=== PATIENT | female | born 1975 | race Two or more races ===

== ENCOUNTER 2024-07-27 11:16 | Emergency (ER) | payer BC, OTHER ==
[~2024-07-27] VITALS: Ht 154.9 cm; Wt 49.0 kg
[2024-07-27] MEDS: HYDROcodone-ACET 5/325MG TAB PO ONE (12:07)
[2024-07-27 13:00] VITALS: BP 169/85; PULSE 120; RESP 16; TEMP 98; O2SAT 100
[2024-07-27] MEDS ORDERED: IBUP-1454 PO (13:21)
== END 2024-07-27 13:29 | disposition home or self-care (01) ==
LOC: ER 11:16
DX: S76.011A Strain of muscle, fascia and tendon of right hip, initial encounter (principal); W18.39XA Other fall on same level, initial encounter; Y93.89 Activity, other specified; Y92.89 Other specified places as the place of occurrence of the external cause; Y99.8 Other external cause status
CPT/HCPCS: 73502

== ENCOUNTER 2025-05-24 03:49 | Inpatient (IN) | payer BC, MEDICAID ==
[2025-05-24] VITALS (16 sets, daily range): BP systolic 101–157; BP diastolic 62–87; PULSE 74–95; RESP 13–20; TEMP 97–98.2; O2SAT 95–100
[~2025-05-24] VITALS: Ht 172.7 cm; Wt 55.9 kg
[~2025-05-24 03:49] MED LIST: IBUP-1454 PO
--- NOTE | 2025-05-24 04:58 | DVH ---
CHEST RADIOGRAPH Indication: fever Technique: 1 view Comparison: None FINDINGS: Lines and Tubes: None Lungs: Decreased lung volumes with vascular crowding. No consolidation. Pleura: No effusion or pneumothorax. Cardiomediastinal contours: Unremarkable. Other: No acute osseous abnormality. Prominent stool burden in the upper abdomen. IMPRESSION: 1. Low lung volumes without acute cardiopulmonary abnormality.
[2025-05-24 05:39] LABS: Hematocrit 28.3 % (36.0-46.0); Hemoglobin 9.0 g/dL (12.2-16.2); Mean Corpuscular Hemoglobin 27.2 pg (28.0-32.0); Mean Corpuscular Volume 85.1 fL (80.0-100.0); Nucleated Red Blood Cells % 0.0 %
[2025-05-24 05:50] LABS: Alanine Aminotransferase 34 U/L (7-40); Albumin 3.7 g/dL (3.2-4.8); Anion Gap 16 (5-15); BUN/Creatinine Ratio 13.7 (10.0-20.0); Bilirubin, Total 0.5 mg/dL (0.2-1.0); Blood Urea Nitrogen 13 mg/dL (9-23); Carbon Dioxide 22 mmol/L (20-31); Potassium 3.8 mmol/L (3.5-5.1); Total Protein 6.6 g/dL (5.7-8.2)
[2025-05-24 05:57] LABS: INR 1.02 (0.9-1.15); Partial Thromboplastin Time 27.0 SEC (24.5-34.5); Prothrombin Time 10.8 sec (9.3-11.8)
[2025-05-24 06:02] LABS: Alkaline Phosphatase 132 U/L (46-116); Calcium 8.2 mg/dL (8.7-10.4); Chloride 92 mmol/L (98-107); Sodium 130 mmol/L (136-145)
[2025-05-24 06:03] LABS: Glucose 505 mg/dL (74-106)
--- NOTE | 2025-05-24 06:56 | ED.PDOC ---
Musculoskeletal HPI Comments 50-year-old female presents here with generalized weakness times 3 months and right lower extremity weakness x3 months . family stat family states that this morning when she went to the restroom she was unable to get up off the toilet. This is new. She states she feels very weak. Denies any fever chills nausea vomiting diarrhea. No abdominal pain no chest pain no shortness of breath. She does have a history of diabetes but has not taken her medications for several months due to insurance reason she has been unable to get her medications. She has been eating and drinking. She also states her left upper extremity has also been swollen for several months. Cause is unknown. Chief Complaint: Lower Extremity Time Seen by MD: 06:20 Reviewed Notes: Medications, Allergies Allergies: Coded Allergies: NO KNOWN ALLERGIES (Unverified , 07/27/24) Home Meds Active Scripts Ibuprofen (Ibuprofen) 600 Mg Tab, 1 TAB PO TID, #30 TAB Prov:RYDERMELBA 07/27/24 Information Source: Patient, Spouse Mode of Arrival: Wheelchair Past Medical History PAST MEDICAL HISTORY: DM Past Medical History (Other): diabetes Surgical History: Denies all surgeries PHLEBOTOMY LAB ASSISTANT History: No Pertinent PHLEBOTOMY LAB ASSISTANT History Family History Family History: Reviewed,noncontributory to illness Social History Smoker: Non-Smoker Alcohol: Denies ETOH Use Drugs: Denies Drug Use Lives In: Home Constitutional: reports: weakness; denies: chills, diaphoresis, fatigue, fever, malaise, sweats, others EENTM: denies: blurred vision, double vision, ear bleeding, ear discharge, ear drainage, ear pain, ear ringing, eye pain, eye redness, hearing loss, mouth pain, mouth swelling, nasal discharge, nose bleeding, nose congestion, nose pain, photophobia, tearing, throat pain, throat swelling, voice changes, others Respiratory: denies: cough, hemoptysis, orthopnea, SOB at rest, shortness of breath, SOB with excertion, stridor, wheezing, others Cardiovascular: denies: chest pain, dizzy spells, diaphoresis, Dyspnea on exertion, edema, irregular heart beat, left arm pain, lightheadedness, palpitations, PND, syncope, others Gastrointestinal: denies: abdomen distended, abdominal pain, blood streaked bowels, constipated, diarrhea, dysphagia, difficulty swallowing, hematemesis, melena, nausea, poor appetite, poor fluid intake, rectal bleeding, rectal pain, vomiting, others Genitourinary: denies: abnormal vagina bleeding, burning, dyspareunia, dysuria, flank pain, frequency, hematuria, incontinence, pain, , vagina discharge, urgency, others Neurological: denies: dizziness, fainting, headache, left sided numbness, left sided weakness, numbness, paresthesia, pre-existing deficit, right sided numbness, right sided weakness, seizure, speech problems, tingling, tremors, weakness, others Musculoskeletal: reports: others (RLE WEAKNESS); denies: back pain, gout, joint pain, joint swelling, muscle pain, muscle stiffness, neck pain Integumetry: denies: bruises, change in color, change in hair/nails, dryness, laceration, lesions, lumps, rash, wounds, others Allergic/Immunocompromised: denies: Difficulty Healing, Frequent Infections, Hives, Itching, others Hematologic/Lymphatic: denies: anemia, blood clots, easy bleeding, easy bruising, swollen glands, others Endocrine: denies: excessive hunger, excessive sweating, excessive thirst, excessive urination, flushing, intolerance to cold, intolerance to heat, unexplained weight gain, unexplained weight loss, others Psychiatric: denies: anxiety, bipolar disorder, depression, hopeless, panic disorder, schizophrenia, sleepless, suicidal, others All Other Systems: Reviewed and Negative Physical Exam Exam Comments Patient unable to stand up and ambulate. Sitting in a wheelchair with family. General Appearance: No Apparent Distress, Normal HEENT: Normal ENT Inspection, Pharynx Normal, TMs Normal Neck: Full Range of Motion, Non-Tender, Normal, Normal Inspection Respiratory: Chest Non-Tender, Lungs Clear, No Accessory Muscle Use, No Respiratory Distress, Normal Breath Sounds Cardiovascular: Normal Peripheral Pulses, Regular Rate/Rhythm Breast Exam: Deferred Gastrointestinal: No Organomegaly, Non Tender, No Pulsatile Mass, Normal Bowel Sounds, Soft Genitalia: Deferred Pelvic: Deferred Rectal: Deferred Extremities: No calf tenderness, Normal capillary refill, Normal range of motion, Non-tender, Other (Plus one and swelling to bilateral lower extremities, worse to the right. She has chronic dry skin to bilateral lower extremities. Left hand does appear swollen.) Musculoskeletal : Apperance: Normal Neurologic: Alert, No Motor Deficits, Normal Affect, Normal Mood, No Sensory Deficits Cerebellar Function: Normal Reflexes: Normal Skin: Dry, Normal Color, Warm Lymphatic: No Adenopathy Was a procedure done? Was a procedure done?: No Differential Diagnosis EXT Differential Diagnosis: Cellulitis, CHF, Deep Vein Thrombosis, Compartment Syndrome, Fracture Other Differential Diagnosis dehydration X-Ray, Labs, Meds, VS Vital Signs Date Time Temp Pulse Resp B/P (MAP) Pulse Ox O2 Delivery O2 Flow Rate FiO2 05/24/25 05:49 100.3 112 15 134/73 (93) 97 100.3 05/24/25 03:51 102.2 128 18 180/96 97 102.2 Lab Test 05/24/25 08:20 05/24/25 05:58 05/24/25 05:15 Range/Units Lactic Acid Level 1.0 1.0 0.4-2.0 mmol/L Beta-Hydroxybutyric Acid 4.061 H < 0.4 mmol/L Influenza Type A Antigen Negative Negative Influenza Type B Antigen Negative Negative SARS-CoV-2 Antigen (Rapid) Negative NEGATIVE White Blood Count 3.6 L 4.4-10.8 10^3/uL Red Blood Count 3.32 L 4.0-5.20 10^6/uL Hemoglobin 9.0 L 12.2-16.2 g/dL Hematocrit 28.3 L 36.0-46.0 % Mean Corpuscular Volume 85.1 80.0-100.0 fL Mean Corpuscular Hemoglobin 27.2 L 28.0-32.0 pg Mean Corpuscular Hemoglobin Concent 32.0 32.0-36.0 g/dL Red Cell Distribution Width 16.8 H 11.8-14.3 % Platelet Count 321 140-450 10^3/uL Mean Platelet Volume 8.4 6.9-10.8 fL Neutrophils (%) (Auto) 75.4 37.0-80.0 % Lymphocytes (%) (Auto) 16.8 10.0-50.0 % Monocytes (%) (Auto) 7.1 0.0-12.0 % Eosinophils (%) (Auto) 0.0 0.0-7.0 % Basophils (%) (Auto) 0.7 0.0-2.0 % Neutrophils # (Auto) 2.7 1.6-8.6 10 ^3/uL Lymphocytes # (Auto) 0.6 0.4-5.4 10 ^3/uL Monocytes # (Auto) 0.3 0-1.3 10 ^3/uL Eosinophils # (Auto) 0 0-0.8 10 ^3/uL Basophils # (Auto) 0 0-0.2 10 ^3/uL Nucleated Red Blood Cells 0.0 % Prothrombin Time 10.8 9.3-11.8 sec Prothrombin Time INR 1.02 0.9-1.15 Activated Partial Thromboplast Time 27.0 24.5-34.5 SEC D-Dimer, Quantitative 1.43 H 0.0-0.49 mg/L FEU Urine Color Pending Urine Clarity Pending Urine pH Pending Urine Specific [place] Pending Urine Protein Pending Urine Ketones Pending Urine Blood Pending Urine Nitrite Pending Urine Bilirubin Pending Urine Urobilinogen Pending Urine Leukocyte Esterase Pending Urine RBC 0 - 4 /hpf Urine Microscopic WBC Pending Urine Squamous Epithelial Cells <5 /hpf Urine Bacteria None Seen /hpf Urine Glucose Pending Sodium Level 130 L 136-145 mmol/L Potassium Level 3.8 3.5-5.1 mmol/L Chloride Level 92 L 98-107 mmol/L Carbon Dioxide Level 22 20-31 mmol/L Anion Gap 16 H 5-15 Blood Urea Nitrogen 13 9-23 mg/dL Creatinine 0.95 0.550-1.02 mg/dL Glomerular Filtration Rate Calc 73 >90 mL/min BUN/Creatinine Ratio 13.7 10.0-20.0 Serum Glucose 505 *H 74-106 mg/dL Calcium Level 8.2 L 8.7-10.4 mg/dL Total Bilirubin 0.5 0.2-1.0 mg/dL Aspartate Amino Transferase (AST) 35 13-40 U/L Alanine Aminotransferase (ALT) 34 7-40 U/L Alkaline Phosphatase 132 H 46-116 U/L Total Protein 6.6 5.7-8.2 g/dL Albumin 3.7 3.2-4.8 g/dL [facility] [id number] [place] [id number] Ph: [phone] DIAGNOSTIC IMAGING Diagnostic Imaging Report : [id number] Signed PATIENT: STEPHENIE TELLES ACCT: [id number] UNIT: [id number] : 1975 LOC: ER ROOM / BED: / AGE / SEX: 50 / F ADM STATUS: REG ER SERVICE [id number] ORDERING PHYSICIAN: SALBADOR BROOKS DO PROCEDURE(s): CXRP - CHEST PORTABLE REASON: fever ORDER NUMBER(s): [id number], ACCESSION NUMBER(s): [id number] CHEST RADIOGRAPH Indication: fever Technique: 1 view Comparison: None FINDINGS: Lines and Tubes: None Lungs: Decreased lung volumes with vascular crowding. No consolidation. Pleura: No effusion or pneumothorax. Cardiomediastinal contours: Unremarkable. Other: No acute osseous abnormality. Prominent stool burden in the upper abdomen. IMPRESSION: 1. Low lung volumes without acute cardiopulmonary abnormality. ATED BY: SHAJI GARCÍA MD DICTATED DATE/TIME: 05/24/25454 SIGNED BY: SHAJI GARCÍA MD SIGNED DATE/TIME: 05/24/25454 CC: [place] [id number] Ph: [phone] DIAGNOSTIC IMAGING Diagnostic Imaging Report : [id number] Signed PATIENT: STEPHENIE TELLES ACCT: [id number] UNIT: [id number] : 1975 LOC: ER ROOM / BED: / AGE / SEX: 50 / F ADM STATUS: REG ER SERVICE [id number] ORDERING PHYSICIAN: GERALD HEDRICK MD PROCEDURE(s): LLDVT - LT Lower DVT REASON: ro dvt ORDER NUMBER(s): [id number], ACCESSION NUMBER(s): [id number] Left lower extremity venous duplex Clinical History: ro dvt Comparison: None Technique: Duplex Doppler evaluation of the deep venous system of the left lower extremity from the common femoral vein to the popliteal vein including color Doppler and spectral/pulsed waveform analysis was performed. Findings: The common femoral vein demonstrates appropriate compressibility and waveform variability. There is compressibility/patency of the great saphenous vein at the proximal thigh. The femoral vein demonstrates appropriate compressibility and waveform variability. The deep femoral vein demonstrates appropriate compressibility and waveform variability. The popliteal vein demonstrates appropriate compressibility and waveform variability. There is normal compressibility at the tibioperoneal trunk. Impression: No left femoropopliteal venous thrombosis. ATED BY: SHAJI GARCÍA MD DICTATED DATE/TIME: 05/24/25827 SIGNED BY: SHAJI GARCÍA MD SIGNED DATE/TIME: 05/24/25827 CC: Time of 1ST Reevaluation: 06:50 Reevaluation 1ST: Unchanged Patient Education/Counseling: Diagnosis, Treatment, Prognosis Family Education/Counseling: Diagnosis, Treatment, Prognosis Sepsis Sepsis Reasesment Focused Exam Orders: Laboratory Tests 05/24/25 05:15: Lactic Acid Level 1.0 05/24/25 08:20: Lactic Acid Level 1.0 Departure 1 Departure Time of Disposition: 09:10 Impression: Primary Impression: DKA (diabetic ketoacidosis) Qualified Codes: E11.10 - Type 2 diabetes mellitus with ketoacidosis without coma Disposition: ADMITTED INPATIENT Admit to: [facility] Condition: Serious Critical Care Note Critical Care Time?: Yes (35 min-critical care time only) Critical care comment: Time spent evaluating patient, reviewing lab work. Starting patient on insulin protocol, speaking to patient family regarding diagnosis, speaking to inpatient Physician. Re-evaluating multiple Accu-Cheks Stability Stability form required: No Heart Score Heart Score: Heart Score Response (Comments) Value History N/A 0 EKG N/A 0 Age N/A 0 Risk Factors N/A 0 Troponin N/A 0 Total 0 I personally scribed for GERALD HEDRICK MD ([email or web address]) on 05/24/25 at 06:56. Electronically submitted by Nitza Clark ([facility]). I personally scribed for GERALD HEDRICK MD ([email or web address]) on 05/24/25 at 07:24. Electronically submitted by [facility] [place] [place] I personally scribed for GERALD HEDRICK MD ([email or web address]) on 05/24/25 at 07:31. Electronically submitted by [facility] [place] [place] I personally scribed for GERALD HEDRICK MD ([facility]) on 05/24/25 at 08:04. Electronically submitted by Nitza Clark ([facility]). I personally scribed for GERALD HEDRICK MD ([facility]) on 05/24/25 at 08:14. Electronically submitted by Nitza Clark ([facility]). I personally scribed for GERALD HEDRICK MD ([facility]) on 05/24/25 at 08:42. Electronically submitted by Nitza Clark ([facility]). GERALD HEDRICK MD May 24, 2025 06:56
[2025-05-24 07:41] LABS: COVID19 ANTIGEN SOFIA FIA NEGATIVE (NEGATIVE)
--- NOTE | 2025-05-24 08:30 | DVH ---
Left lower extremity venous duplex Clinical History: ro dvt Comparison: None Technique: Duplex Doppler evaluation of the deep venous system of the left lower extremity from the common femor al vein to the popliteal vein including color Doppler and spectral/pulsed waveform analysis was perfo rmed. Findings: The common femoral vein demonstrates appropriate compressibility and waveform variability. There is compressibility/patency of the great saphenous vein at the proximal thigh. The femoral vein demonstrates appropriate compressibility and waveform variability. The deep femoral vein demonstrates appropriate compressibility and waveform variability. The popliteal vein demonstrates appropriate compressibility and waveform variability. There is normal compressibility at the tibioperoneal trunk. Impression: No left femoropopliteal venous thrombosis.
[2025-05-24] MEDS ORDERED: DEXTROSE (50%) 50ML SYRG IV PRN (10:30)
[2025-05-24] MEDS: ACCU-CHEK COMFORT CURVE STRIP VI SCH (12:12)
[2025-05-24] MEDS ORDERED: MORPHINE SULFATE INJ 2 MG/ml SYRG IV PRN (13:00)
[2025-05-24] MEDS ORDERED: NITROGLYCERIN 0.4 MG SL TAB SL PRN (13:00)
--- NOTE | 2025-05-24 13:27 | DVHHPRES ---
History of Present Illness Resident Creating Document: LES ROSAS RESIDENT History of Present Illness Ms. Mosley, 50-year-old female presents with generalized weakness and right lower extremity weakness for the past three months, with a sudden inability to rise from the toilet this morning, marking a new and concerning development. She reports feeling very weak but denies fever, chills, gastrointestinal symptoms, chest pain, or shortness of breath. She has a history of diabetes but has not taken her medications for several months due to insurance issues. Additionally, she notes unexplained swelling in her left upper extremity for several months. She arrived via wheelchair, and her spouse helped provide information. She has no known allergies and is currently prescribed ibuprofen. But denies any abdominal pain, nausea, vomiting, melena, hematemesis or hematochezia. PMHx: Unknown, new onset/worsening of DM PMHs: NA FH: Noncontributory SH: Comes from home, denies smoking, alcohol, or any other recreational drugs. OBGYN: Unremarkable Review of Systems Constitutional: Yes: Chills, Malaise; No: Fever, Sweats, Weakness, Other Eyes: No: Pain, Vision change, Conjunctivae inflammation, Eyelid inflammation, Other, Redness ENT: No: Ear pain, Ear discharge, Nose pain, Nose discharge, Nose congestion, Mouth pain, Mouth swelling, Throat pain, Throat swelling, Other Respiratory: No: Cough, Dry, Shortness of breath, SOB with excertion, Wheezing, Hemoptysis, Pleuritic Pain, Sputum, Wheezing, Other Cardiovascular: No: Chest Pain, Palpitations, Orthopnea, Paroxysmal Noc. Dyspnea, Edema, Lt Headedness, Other Gastrointestinal: Nausea, Abdominal Pain; No: Vomiting, Diarrhea, Constipation, Melena, Hematochezia, Other Genitourinary: No Dysuria, No Frequency, No Incontinence, No Hematuria, No Retention, No Other Musculoskeletal: No: other, neck pain, shoulder pain, arm pain, back pain, hand pain, leg pain, foot pain Skin: No: Rash, Lesions, Jaundice, Bruising, Other Neurological: Weakness (The hormonal), Confusion; No: Numbness, Incoordination, Change in speech, Seizures, Other Allergies: Coded Allergies: NO KNOWN ALLERGIES (Unverified , 07/27/24) Medications Current Medications Medications Dose Ordered Sig/Tone Route Start Time Stop Time Status Last Admin Dose Admin Cefepime HCl 50 ml @ 12.5 mls/hr Q12HR IV 05/24/25 22:00 Insulin Human (Reg)/Sodium Chloride 100 ml @ 0.5 mls/hr Q24H IV 05/24/25 10:30 Dextrose 50 ml UD PRN IV 05/24/25 10:30 Diagnostic Test (Pha) 1 strip Q90MIN 05/24/25 10:30 05/24/25 12:12 1 STRIP Ondansetron HCl 4 mg Q4HP PRN IV 05/24/25 13:00 Morphine Sulfate 2 mg Q4HPRN PRN IV 05/24/25 13:00 Nitroglycerin 0.4 mg Q5MINP PRN SL 05/24/25 13:00 Morphine Sulfate 2 mg Q30M PRN IV 05/24/25 13:00 Pantoprazole Sodium 40 mg DAILY IV 05/24/25 13:00 Magnesium Sulfate/ Dextrose 100 ml @ 100 mls/hr Q1HR IV 05/24/25 14:00 05/24/25 15:59 Vancomycin HCl 0 ml @ 0 mls/hr UD IV 05/24/25 13:30 UNV Pantoprazole Sodium 40 mg DAILY IV 05/25/25 10:00 UNV Exam Vital Signs Vital Signs Date Time Temp Pulse Resp B/P (MAP) Pulse Ox O2 Delivery O2 Flow Rate FiO2 05/24/25 11:18 97.5 90 16 115/64 (81) 100 97.5 General Appearance: Alert, Oriented X3, Cooperative, mild distress HEENT: Atraumatic, PERRLA, EOMI, Mucous membr. moist/pink Respiratory: Clear to auscultation, Normal air movement Cardiovascular: Regular rate, Normal S1, Normal S2, No murmurs, Gallops Abdominal: Normal bowel sounds, Soft, Other (tenderness mild without guard ) Extremities: No clubbing, No cyanosis, No edema, Normal pulses Skin: No rashes, No breakdown, No significant lesion Neuro: Normal gait, Normal speech, Strength at 5/5 X4 ext Psych/Mental Status: Mental status NL, Mood NL Labs/Xrays Labs Test 05/24/25 12:11 05/24/25 08:20 05/24/25 05:58 05/24/25 05:15 Range/Units POC Glucose 431 *H 70-106 mg/dl Lactic Acid Level 1.0 0.4-2.0 mmol/L Beta-Hydroxybutyric Acid 4.061 H < 0.4 mmol/L Influenza Type A Antigen Negative Negative Influenza Type B Antigen Negative Negative SARS-CoV-2 Antigen (Rapid) Negative NEGATIVE White Blood Count 3.6 L 4.4-10.8 10^3/uL Red Blood Count 3.32 L 4.0-5.20 10^6/uL Hemoglobin 9.0 L 12.2-16.2 g/dL Hematocrit 28.3 L 36.0-46.0 % Mean Corpuscular Volume 85.1 80.0-100.0 fL Mean Corpuscular Hemoglobin 27.2 L 28.0-32.0 pg Mean Corpuscular Hemoglobin Concent 32.0 32.0-36.0 g/dL Red Cell Distribution Width 16.8 H 11.8-14.3 % Platelet Count 321 140-450 10^3/uL Mean Platelet Volume 8.4 6.9-10.8 fL Neutrophils (%) (Auto) 75.4 37.0-80.0 % Lymphocytes (%) (Auto) 16.8 10.0-50.0 % Monocytes (%) (Auto) 7.1 0.0-12.0 % Eosinophils (%) (Auto) 0.0 0.0-7.0 % Basophils (%) (Auto) 0.7 0.0-2.0 % Neutrophils # (Auto) 2.7 1.6-8.6 10 ^3/uL Lymphocytes # (Auto) 0.6 0.4-5.4 10 ^3/uL Monocytes # (Auto) 0.3 0-1.3 10 ^3/uL Eosinophils # (Auto) 0 0-0.8 10 ^3/uL Basophils # (Auto) 0 0-0.2 10 ^3/uL Nucleated Red Blood Cells 0.0 % Prothrombin Time 10.8 9.3-11.8 sec Prothrombin Time INR 1.02 0.9-1.15 Activated Partial Thromboplast Time 27.0 24.5-34.5 SEC D-Dimer, Quantitative 1.43 H 0.0-0.49 mg/L FEU Urine RBC 0 - 4 /hpf Urine Squamous Epithelial Cells <5 /hpf Urine Bacteria None Seen /hpf Sodium Level 130 L 136-145 mmol/L Potassium Level 3.8 3.5-5.1 mmol/L Chloride Level 92 L 98-107 mmol/L Carbon Dioxide Level 22 20-31 mmol/L Anion Gap 16 H 5-15 Blood Urea Nitrogen 13 9-23 mg/dL Creatinine 0.95 0.550-1.02 mg/dL Glomerular Filtration Rate Calc 73 >90 mL/min BUN/Creatinine Ratio 13.7 10.0-20.0 Serum Glucose 505 *H 74-106 mg/dL Calcium Level 8.2 L 8.7-10.4 mg/dL Magnesium Level 1.5 L 1.6-2.6 mg/dL Total Bilirubin 0.5 0.2-1.0 mg/dL Aspartate Amino Transferase (AST) 35 13-40 U/L Alanine Aminotransferase (ALT) 34 7-40 U/L Alkaline Phosphatase 132 H 46-116 U/L Total Protein 6.6 5.7-8.2 g/dL Albumin 3.7 3.2-4.8 g/dL SEPSIS Sepsis Screen Date sepsis recognized/suspect: May 24, 2025 Time Sepsis recognized/suspect: 356 Recent Procedure: No On Antibiotic Therapy: No Respiratory Rate >20: No Heart Rate >90: Yes Temp<36 C (96.8 F) or >38.3 C: Yes SBP <90 or MAP <65 mmHG: No New Acute Mental Status Change: No Is the patient on CPAP, BIPAP,: No Physician Orders Lt Lower Dvt (05/24/25 07:07) Insulin Drip Protocol (05/24/25 ) Insulin Drip 100 Unit/100ml (Myxredlin 1 (05/24/25 10:30) Dextrose 50% Syringe (05/24/25 10:30) Glucose Blood (Accu-Chek Comfort Curve T (05/24/25 10:30) Neurological Assessment (05/24/25 10:18) Vs/Hemodynamics .PER UNIT PROTOCOL (05/24/25 10:18) Admit (05/24/25 12:53) Allergies (05/24/25 12:53) Code Status (05/24/25 12:53) Oxygen Per Hour (05/24/25 12:53) Ondansetron Hcl (Zofran) (05/24/25 13:00) Fall Risk Precautions In Place QSHIFT (05/24/25 12:53) Complete Blood Count (05/25/25 04:00) Comprehensive Metabolic Panel (05/25/25 04:00) Npo (Nothing By Mouth) Diet (05/24/25 Lunch) Pt Request For Service (05/24/25 12:53) Echo 2d Mode Cardiac Dop (05/24/25 12:53) Condition: Critical (05/24/25 12:53) Maintain Bed Rest (05/24/25 12:53) Morphine Sulfate Injection (05/24/25 13:00) Sequential Compression Device (05/24/25 ) Nitroglycerin Sublingual (Ntrostat Subli (05/24/25 13:00) Morphine Sulfate Injection (05/24/25 13:00) Oxygen By Nasal Cannula (05/24/25 12:53) Stat Ekg For Chest Pain (05/24/25 12:53) Notify Md Of Changes From Base (05/24/25 12:53) Resource Manager For 24 Hours (05/24/25 12:53) Emergency Dysrhythmia Protocol (05/24/25 12:53) Rhythm Strips Once Every Shift (05/24/25 12:53) Drug Screen (05/24/25 12:57) Blood Alcohol (05/24/25 12:57) Pantoprazole (Protonix) (05/24/25 13:00) Mrsa Screen (05/24/25 13:02) Respiratory Culture W/ Gs (05/24/25 13:02) Sodium Chloride 0.9% (05/24/25 13:15) Stool Occult Blood (05/24/25 13:02) Magnesium Sulfate 1gm/100ml (05/24/25 14:00) Vancomycin Per Pharmacy (05/24/25 13:30) Pantoprazole (Protonix) (05/24/25 13:30) Pantoprazole (Protonix) (05/25/25 10:00) Lactated Ringer's (05/24/25 13:30) Vital Signs Date Time Temp Pulse Resp B/P (MAP) Pulse Ox O2 Delivery O2 Flow Rate FiO2 05/24/25 11:18 97.5 90 16 115/64 (81) 100 97.5 05/24/25 05:49 100.3 112 15 134/73 (93) 97 100.3 Laboratory Tests Test 05/24/25 05:15 05/24/25 08:20 Lactic Acid Level 1.0 mmol/L (0.4-2.0) 1.0 mmol/L (0.4-2.0) White Blood Count 3.6 10^3/uL (4.4-10.8) L Medications Medications Dose Ordered Sig/Tone Route Start Time Stop Time Status Last Admin Dose Admin Diagnostic Test (Pha) 1 strip Q90MIN 05/24/25 10:30 05/24/25 12:12 1 STRIP Assessment/Plan Assessment/Plan #Sepsis at presentation, source : Presumably fever, Tylenol as needed, conservative cooling measures. #Metabolic/toxic encephalopathy: Toxicology, alcohol, likely multifactorial, aspiration precaution, NPO, Speak with her interval neuro checks. #DKA: NPO, IV drip insulin protocol, get IV access, in-hospital ideal blood glucose 140-180 mg/dl. #Uncontrolled diabetes mellitus: check HbA1C #Ruled out Covid and Influenza #Hypertensive urgency/ emergency: present on admission, slowly improving, keep MAP > 65 #Uncontrolled essential HTN, target BP 130/90 or below #Early normocytic anemia: likely early iron-deficiency, check the iron panel, ferritin, transfusion threshold 7. IV PPI to continue. stool occult blood to rule out. #Hypomagnesemia, 1.5: IV magnesium #Hyponatremia, mild likely chronic: PCP: Needs to establish care with PCP and Barriers to discharge: Medical management ongoing. Case discussed with Dr. Johansen. Code status: Full code. Complex patient care discussion needed total 39 minutes. Plan discussed with: Patient My Orders Orders - LES ROSAS RESIDENT Procedure Category Date Status Time Admit ADMIT 05/24/25 Transmitted 12:53 Allergies FRANK 05/24/25 In Process 12:53 Code Status CODE 05/24/25 Transmitted 12:53 Oxygen Per Hour RT 05/24/25 Transmitted 12:53 Ondansetron Hcl PHA 05/24/25 In Process (Zofran) 13:00 Fall Risk Precautions FRANK 05/24/[address] 12:53 Complete Blood Count LAB 05/25/25 Verified 04:00 Comprehensive LAB 05/25/25 Verified Metabolic Panel 04:00 Npo (Nothing By DIET 05/24/25 Transmitted Mouth) Diet Lunch Pt Request For Service PT 05/24/25 Logged 12:53 Echo 2d Mode Cardiac US 05/24/25 Logged DOP 12:53 Condition: Critical FRANK 05/24/25 In Process 12:53 Maintain Bed Rest FRANK 05/24/25 In Process 12:53 Morphine Sulfate PHA 05/24/25 In Process Injection 13:00 Sequential FARNK 05/24/25 In Process Compression Device Nitroglycerin PHA 05/24/25 In Process Sublingual (Ntrostat 13:00 Morphine Sulfate PHA 05/24/25 In Process Injection 13:00 Oxygen By Nasal RT 05/24/25 Transmitted Cannula 12:53 Stat Ekg For Chest FRANK 05/24/25 In Process Pain 12:53 Notify Md Of Changes FRANK 05/24/25 In Process From Base 12:53 Resource Manager For FRANK 05/24/25 In Process 24 Hours 12:53 Emergency Dysrhythmia FRANK 05/24/25 In Process Protocol 12:53 Rhythm Strips Once FRANK 05/24/25 In Process Every Shift 12:53 Drug Screen LAB 05/24/25 Logged 12:57 Blood Alcohol LAB 05/24/25 Logged 12:57 Pantoprazole PHA 05/24/25 In Process (Protonix) 13:00 Mrsa Screen ROBBY 05/24/25 Logged 13:02 Respiratory Culture ROBBY 05/24/25 Logged W/ Gs 13:02 Sodium Chloride 0.9% PHA 05/24/25 In Process 13:15 Stool Occult Blood LAB 05/24/25 Logged 13:02 Magnesium Sulfate PHA 05/24/25 In Process 1gm/100ml 14:00 Vancomycin Per PHA 05/24/25 Pending Pharmacy 13:30 Pantoprazole PHA 05/24/25 Logged (Protonix) 13:30 Pantoprazole PHA 05/25/25 Logged (Protonix) 10:00 Lactated Ringer's PHA 05/24/25 Logged 13:30 Date of Service: May 24, 2025 Billing Provider: YESENIA JOHANSEN MD Common Visit Codes: [id number] INP/OBS CARE (HIGH) Secondary Visit Codes: [id number] CARE PLAN 30 MINUTES LES ROSAS RESIDENT May 24, 2025 13:27
[2025-05-24] MEDS ORDERED: VANCOMYCIN PER PHARMACY 0 MG IV SCH (13:30)
[2025-05-24 14:24] LABS: Iron 25.0 ug/dL (50-170); Total Iron Binding Capacity 325.0 ug/dL (250-425)
[2025-05-24] MEDS ORDERED: SODIUM CHLORIDE 0.9% 1,000 ML IV SCH (14:30)
[2025-05-24] MEDS: CEFEPIME 1GM/ 50ML 50 ML IV ONE (14:53)
[2025-05-24] MEDS: SODIUM CHLORIDE 0.9% 500 ML IV ONE (14:53)
[2025-05-24] MEDS: LACTATED RINGER'S 1,450 ML IV ONE (14:53)
[2025-05-24] MEDS: PANTOPRAZOLE 40 MG/10 ML VIAL INJ IV ONE (15:02)
[2025-05-24] MEDS: LACTATED RINGER'S 1,000 ML IV ONE (15:04)
[2025-05-24] MEDS: PANTOPRAZOLE 40 MG/10 ML VIAL INJ IV SCH (15:14)
[2025-05-24] MEDS: VANCOMYCIN 1.25GM/250ML 250 ML IV ONE (15:15)
[2025-05-24] MEDS: INSULIN DRIP 100 UNIT/100ML 100 ML IV SCH ×2 (15:16→20:00)
[2025-05-24] MEDS: SODIUM CHLORIDE 0.9% 1,000 ML IV ONE (15:18)
--- NOTE | 2025-05-24 16:13 | DVHSR ---
APPROVED REPORT EXAM: Two-dimensional and M-mode echocardiogram with Doppler and color Doppler. Blood Pressure: 115/64 mmHg INDICATION rule out structural heart disease RISK FACTORS Height: 5'1, Weight: 110 DIMENSIONS LVDd3.1 (3.8-5.7cm)LA (2D)2.8 (1.9-4.0cm)Aortic Root3.0 (2.0-3.7cm) LVDs1.9 (2.5-4.0cm)LA (MM) (1.9-4.0cm)Aortic Cusp Exc1.5 (1.5-2.0cm) EF (%) 70.0 (55-70%)Rt. Atrium3.6 (1.9-4.0cm)Asc. Aorta3.0 cm IVSd1.3 (0.7-1.1cm)RV (D)3.0 (1.8-2.4cm) PWd1.0 (0.7-1.1cm) Mitral Valve MitralMitral Stenosis E wave0.56m/sMV Mean GR.mmHg A wave0.82m/sMV Peak GR.70mmHg E/A ratio0.72D MVAcm2 DECEL [id number] 1/2 Tim[place] Aortic Valve Aortic ValveAortic Stenosis V10.94m/[place] Mean GR.3mmHg V21.11m/[place] Peak GR.5mmHg LVOT Diameter1.7 (1.8-2.4cm)Doppler AVA1.92cm2 Pulmonic Valve V21.01m/s Tricuspid Valve TR Velocity2.22m/s [id number] Conclusion lvef 60% severe concentric LVH (HCM is on the DDX for this patient though there is no lvot gradient) no severe valve abnormalities noted mild left atrium enlarged
[2025-05-24] MEDS: MAGNESIUM SULFATE 1GM/100ML 100 ML IV SCH (17:04)
[2025-05-24] MEDS: CALCIUM GLUC 1,000mg/50ml-NS 50 ML IV ONE (17:05)
[2025-05-24] MEDS: CEFEPIME 1GM/ 50ML 50 ML IV SCH (22:00)
[2025-05-24 22:27] LABS: Chloride 99 mmol/L (98-107)
[2025-05-24 22:28] LABS: Anion Gap 8 (5-15); Carbon Dioxide 28 mmol/L (20-31)
[2025-05-24 22:34] LABS: BUN/Creatinine Ratio 16.2 (10.0-20.0); Blood Urea Nitrogen 11 mg/dL (9-23)
[2025-05-24 22:36] LABS: Calcium 8.5 mg/dL (8.7-10.4); Glucose 201 mg/dL (74-106); Potassium 2.7 mmol/L (3.5-5.1); Sodium 135 mmol/L (136-145)
[2025-05-25] VITALS (20 sets, daily range): BP systolic 107–179; BP diastolic 61–107; PULSE 74–105; RESP 10–18; TEMP 97.7–98.3; O2SAT 97–100
[2025-05-25] MEDS: INSULIN DRIP 100 UNIT/100ML 100 ML IV SCH (00:15)
[2025-05-25] MEDS: POTASSIUM CHL 20MEQ/100ML 100 ML IV SCH (01:56)
[2025-05-25] MEDS: D5W/SOD CHLO 0.9% 1,000 ML IV SCH (01:56)
[2025-05-25] MEDS: ACCU-CHEK COMFORT CURVE STRIP VI SCH ×2 (02:00→06:27)
[2025-05-25] MEDS ORDERED: DEXTROSE (50%) 50ML SYRG IV PRN (02:30)
[2025-05-25] MEDS: VANCOMYCIN 750MG KIT 100 ML IV SCH (03:18)
[2025-05-25] MEDS ORDERED: InsuLIN REG 1unit/0.01ml Soln (100units/ml) SC SCH (04:00)
[2025-05-25] MEDS ORDERED: ACCU-CHEK COMFORT CURVE STRIP VI SCH (04:00)
[2025-05-25 05:55] LABS: Alanine Aminotransferase 34 U/L (7-40); Albumin 3.4 g/dL (3.2-4.8); Blood Urea Nitrogen 15 mg/dL (9-23); Chloride 100 mmol/L (98-107); Magnesium 2.1 mg/dL (1.6-2.6); Potassium 4.1 mmol/L (3.5-5.1); Sodium 136 mmol/L (136-145); Total Protein 6.1 g/dL (5.7-8.2)
[2025-05-25 05:56] LABS: Bilirubin, Total 0.4 mg/dL (0.2-1.0)
[2025-05-25 05:57] LABS: Anion Gap 12 (5-15)
[2025-05-25 05:58] LABS: Alkaline Phosphatase 130 U/L (46-116); Calcium 8.5 mg/dL (8.7-10.4); Carbon Dioxide 24 mmol/L (20-31)
[2025-05-25 06:02] LABS: BUN/Creatinine Ratio 24.6 (10.0-20.0)
[2025-05-25 06:05] LABS: Glucose 207 mg/dL (74-106)
[2025-05-25] MEDS: InsuLIN REG 1unit/0.01ml Soln (100units/ml) SC SCH (06:26)
[2025-05-25] MEDS ORDERED: PANTOPRAZOLE 40 MG/10 ML VIAL INJ IV SCH (10:00)
[2025-05-25 10:15] LABS: Hematocrit 30.6 % (36.0-46.0); Hemoglobin 9.5 g/dL (12.2-16.2); Mean Corpuscular Hemoglobin 26.5 pg (28.0-32.0); Mean Corpuscular Volume 84.9 fL (80.0-100.0); Nucleated Red Blood Cells % 0.1 %
[2025-05-25 10:35] LABS: Chloride 102 mmol/L (98-107); Potassium 4.5 mmol/L (3.5-5.1)
[2025-05-25 10:36] LABS: Sodium 135 mmol/L (136-145)
[2025-05-25 10:37] LABS: Anion Gap 5 (5-15); Carbon Dioxide 28 mmol/L (20-31)
[2025-05-25 10:42] LABS: BUN/Creatinine Ratio 22.4 (10.0-20.0); Blood Urea Nitrogen 15 mg/dL (9-23)
[2025-05-25 10:44] LABS: Calcium 8.1 mg/dL (8.7-10.4); Glucose 293 mg/dL (74-106)
--- NOTE | 2025-05-25 12:55 | DVHPN2 ---
Subjective Seen and examined at bedside in the [facility] with Dr. Aguilar (Pul) in Czech. Patient lost his insurance therefore stopped taking medications. Counseled in Czech on tight glycemic control. Await urine analysis, if negative can DC Abx. Changes from previous H/P or p: No Changes Eyes: No Pain, No Vision change, No Conjunctivae inflammation, No Eyelid inflammation, No Other, No Redness ENT: No Ear pain, No Ear discharge, No Nose pain, No Nose discharge, No Nose congestion, No Mouth pain, No Mouth swelling, No Throat pain, No Throat swelling, No Other Cardiovascular: No Chest Pain, No Palpitations, No Orthopnea, No Paroxysmal Noc. Dyspnea, No Edema, No Lt Headedness, No Other Respiratory: No Cough, No Dry, No Shortness of breath, No SOB with excertion, No Wheezing, No Hemoptysis, No Pleuritic Pain, No Sputum, No Other Gastrointestinal: No Nausea, No Vomiting, No Abdominal Pain, No Diarrhea, No Constipation, No Melena, No Hematochezia, No Other Genitourinary: No Dysuria, No Frequency, No Incontinence, No Hematuria, No Retention, No Other Musculoskeletal: No other, No neck pain, No shoulder pain, No arm pain, No back pain, No hand pain, No leg pain, No foot pain Skin: No Rash, No Lesions, No Jaundice, No Bruising, No Other Objective Vitals Vital Signs Date Time Temp Pulse Resp B/P (MAP) Pulse Ox O2 Delivery O2 Flow Rate FiO2 05/25/25 12:00 98.3 85 16 132/84 (100) 99 98.3 05/25/25 08:00 Room Air* 0 21 Intake/Output Intake and Output 05/25/25 06:59 Intake Total 2093.0 ml Output Total 1750 ml Balance 343.0 ml Intake Oral 240 ml IV Total 1853.0 ml Output Urine Total 1750 ml # Bowel Movements 1 General Appearance: Alert, Oriented X3, Cooperative, No acute distress HEENT: Atraumatic Lungs: Clear to auscultation Cardiovascular: Regular rate, Normal S1, Normal S2 Abdomen: Normal bowel sounds, Soft Rectal: Deferred Psych/Mental Status: Mental status NL Medications Current Medications Medications Dose Ordered Sig/Tone Route Start Time Stop Time Status Last Admin Dose Admin Cefepime HCl 50 ml @ 12.5 mls/hr Q12HR IV 05/24/25 22:00 05/25/25 09:35 12.5 MLS/HR Ondansetron HCl 4 mg Q4HP PRN IV 05/24/25 13:00 Morphine Sulfate 2 mg Q4HPRN PRN IV 05/24/25 13:00 Nitroglycerin 0.4 mg Q5MINP PRN SL 05/24/25 13:00 Morphine Sulfate 2 mg Q30M PRN IV 05/24/25 13:00 Pantoprazole Sodium 40 mg DAILY IV 05/24/25 13:00 05/25/25 09:35 40 MG Vancomycin HCl 0 ml @ 0 mls/hr UD IV 05/24/25 13:30 Vancomycin HCl 100 ml @ 100 mls/hr Q12H IV 05/25/25 02:00 05/25/25 03:18 100 MLS/HR Dextrose/Sodium Chloride 1,000 ml @ 100 mls/hr Q10H IV 05/25/25 01:15 05/25/25 10:34 100 MLS/HR Dextrose 50 ml UD PRN IV 05/25/25 02:30 Insulin Human Regular Q4HR SC 05/25/25 06:15 05/25/25 09:36 9 UNITS Diagnostic Test (Pha) 1 strip Q4HR 05/25/25 06:15 05/25/25 09:35 1 STRIP Laboratory Results Laboratory Tests 05/25/25 10:00 Chemistry Test 05/24/25 22:06 05/25/25 05:07 05/25/25 10:00 Calcium Level 8.5 mg/dL (8.7-10.4) L 8.5 mg/dL (8.7-10.4) L 8.1 mg/dL (8.7-10.4) L Albumin 3.4 g/dL (3.2-4.8) Magnesium Level 2.1 mg/dL (1.6-2.6) Total Protein 6.1 g/dL (5.7-8.2) LFT Test 05/25/25 05:07 Alanine Aminotransferase (ALT) 34 U/L (7-40) Alkaline Phosphatase 130 U/L (46-116) H Aspartate Amino Transferase (AST) 32 U/L (13-40) Total Bilirubin 0.4 mg/dL (0.2-1.0) Urinalysis Test 05/24/25 05:15 Urine Color Pending Urine Clarity Pending Urine pH Pending Urine Specific Edwards Pending Urine Protein Pending Urine Ketones Pending Urine Blood Pending Urine Nitrite Pending Urine Bilirubin Pending Urine Urobilinogen Pending Urine Leukocyte Esterase Pending Urine RBC /hpf (0 - 4) Urine Microscopic WBC Pending Urine Squamous Epithelial Cells /hpf (<5) Urine Bacteria /hpf (None Seen) Urine Glucose Pending Microbiology Microbiology Date/Time Source Procedure Growth Status 05/24/25 05:15 Blood Blood Culture - Preliminary NO GROWTH AFTER 24 HOURS OF INCUBATION. 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 - Outpatient Cardio workup critical care time 38 mins Plan discussed with: Patient My Orders Orders - YESENIA JOHANSEN MD Procedure Category Date Status Time Transfer Orders XFER 05/24/25 Transmitted 14:54 Provide Diabetic ORDERS 05/25/25 Transmitted Education 12:45 * Master Tax Advisor CONS 05/25/25 Transmitted Consult Sodium Chloride 0.9% PHA 05/25/25 Logged 12:45 Ferrous Sulfate Tablet PHA 05/25/25 Logged 18:00 Vitamin D, 25-Hydroxy LAB 05/25/25 Transmitted 12:45 Thyroid Stimulating LAB 05/25/25 Transmitted Hormone 12:45 Lipid Panel LAB 05/25/25 Transmitted 12:45 Ergocalciferol PHA 05/25/25 Logged (Vitamin D 50,000 12:45 *Consult CONS 05/25/25 Transmitted / 12:45 Date of Service: May 25, 2025 Billing Provider: YESENIA JOHANSEN MD Common Visit Codes: [id number] CARE 30-74 MIN YESENIA JOHANSEN MD May 25, 2025 12:55
[2025-05-25] MEDS: SODIUM CHLORIDE 0.9% 1,000 ML IV SCH (13:05)
[2025-05-25 13:29] LABS: Triglycerides 100 mg/dL (< 150)
[2025-05-25 13:31] LABS: Cholesterol 198 mg/dL (< 200)
[2025-05-25 13:32] LABS: HDL Cholesterol 91 mg/dL (40-59)
[2025-05-25] MEDS: ERGOCALCIFEROL 50,000 UNIT(1.25MG) CAP PO SCH (13:59)
[2025-05-25] MEDS: FERROUS SULFATE 325mg EC TAB PO SCH (17:49)
[2025-05-25 21:11] LABS: Urine Protein, UAD 1+ (Negative)
[2025-05-25 21:15] LABS: Amphetamine Screen, Urine Neg (NEGATIVE); Barbiturate Scree,Urine Neg (NEGATIVE); Benzodiazephine Screen, Urine Neg (NEGATIVE); Cannabinoid Screen, Urine Neg (NEGATIVE); Cocaine Screen, Urine Neg (NEGATIVE); Opiate Scree,Urine Neg (NEGATIVE); Phencyclidine Screen, Urine Neg (NEGATIVE)
[2025-05-25 22:23] LABS: Chloride 100 mmol/L (98-107); Potassium 4.6 mmol/L (3.5-5.1)
[2025-05-25 22:24] LABS: Anion Gap 7 (5-15); Carbon Dioxide 28 mmol/L (20-31)
[2025-05-25 22:27] LABS: Calcium 8.3 mg/dL (8.7-10.4); Sodium 135 mmol/L (136-145)
[2025-05-25 22:29] LABS: BUN/Creatinine Ratio 21.4 (10.0-20.0); Blood Urea Nitrogen 15 mg/dL (9-23)
[2025-05-25 22:34] LABS: Glucose 146 mg/dL (74-106)
--- NOTE | 2025-05-25 23:56 | DVHINCON2 ---
Date of service: May 25, [address] Freedman Reason for Consultation Sepsis History of Present Illness A 50-year-old woman with PMHx of diabetes mellitus presented to ED on 05/24/25 with c/o generalized weakness and right lower extremity weakness for the past 3 months, with a sudden inability to rise from the toilet on the morning of presentation. She reported feeling very weak but denied fever, chills, GI symptoms, chest pain, or shortness of breath. She has a history of diabetes, but has not taken her medications for several months due to insurance issues. Additionally, she notes unexplained swelling in her left upper extremity for several months. She arrived via wheelchair, and her spouse helped provide information. Patient was admitted for further care and pulmonary consultation is requested for evaluation and management d/t sepsis. Review of Systems: 14-point review of systems negative unless otherwise noted above. Past Medical History: Diabetes mellitus Past Surgical History: None Medications: Reviewed. Allergies: No known drug allergies. Family History: No family history of premature CAD. No family history of lung disorders. Social History: Nonsmoker. No alcohol or illicit drug use. Allergies: Coded Allergies: NO KNOWN ALLERGIES (Unverified , 07/27/24) Home Meds Active Scripts Amlodipine Besylate (Amlodipine Besylate) 10 Mg Tab, 1 TAB PO DAILY, #30 TAB 5 Refills Prov:DONNA BROWNING MD 05/28/25 Metformin Hydrochloride (METFORMIN HCL ER) 1,000 Mg Tab, 1 TAB PO DAILY, #90 TAB 1 Refill Prov:DONNA BROWNING MD 05/28/25 Ibuprofen (Ibuprofen) 600 Mg Tab, 1 TAB PO TID, #30 TAB Prov:MELBA SOLER 07/27/24 Current Medications Current Medications Medications (Trade) Dose Ordered Sig/Tone Route PRN Reason Start Time Stop Time Status Last Admin Pantoprazole Sodium (Protonix) 40 mg DAILY IV 05/25/25 10:00 05/24/25 13:38 DC Vancomycin HCl 100 ml @ 100 mls/hr Q12H IV 05/25/25 02:00 05/25/25 14:07 Insulin Human (Reg)/Sodium Chloride 100 ml @ 0.5 mls/hr Q24H IV 05/25/25 00:15 05/25/25 01:17 DC Dextrose/Sodium Chloride 1,000 ml @ 100 mls/hr Q10H IV 05/25/25 01:15 05/25/25 12:48 DC 05/25/25 10:34 Diagnostic Test (Pha) (Accu-Chek Comfort Curve T) 1 strip Q4HR 05/25/25 02:00 05/25/25 06:10 DC 05/25/25 02:00 Potassium Chloride 100 ml @ 50 mls/hr Q2H IV 05/25/25 01:15 05/25/25 07:14 DC 05/25/25 06:27 Diagnostic Test (Pha) (Accu-Chek Comfort Curve T) 1 strip IQ4HR 05/25/25 04:00 05/25/25 06:10 DC Insulin Human Regular (InsuLIN R) IQ4HR SC 05/25/25 04:00 05/25/25 06:10 DC Dextrose 50 ml UD PRN IV Blood Sugar LESS THAN 60 05/25/25 02:30 Insulin Human Regular (InsuLIN R) Q4HR SC 05/25/25 06:15 05/25/25 22:21 Diagnostic Test (Pha) (Accu-Chek Comfort Curve T) 1 strip Q4HR 05/25/25 06:15 05/25/25 22:03 Sodium Chloride 1,000 ml @ 125 mls/hr Q8H IV 05/25/25 12:45 05/25/25 13:05 Ferrous Sulfate 325 mg BIDWM PO 05/25/25 18:00 05/25/25 17:49 Ergocalciferol (Vitamin D 50,000 Unit) 50,000 unit Q7D PO 05/25/25 12:45 05/25/25 13:59 Vital Signs Vital Signs Date Time Temp Pulse Resp B/P (MAP) Pulse Ox O2 Delivery O2 Flow Rate FiO2 05/25/25 22:00 154/98 (116) 05/25/25 21:00 97.9 86 18 97 97.9 05/25/25 08:00 Room Air* 0 21 Physical Exam Gen.: Patient lying in bed in no apparent distress. Breathing on room air. Head: Normocephalic, atraumatic. Eyes: EOMI/PERRLA. Ears: Normal hearing. Normal anatomy. Neck/trachea: Trachea midline, supple. Nose: Normal external anatomy. Mouth: Moist mucous membranes. Chest: Decreased air entry bilaterally. No wheezing or rhonchi. Cardiovascular: Positive S1, positive S2. Regular rate and rhythm. Abdomen: Positive bowel sounds in all 4 quadrants. Soft, non-tender, non- distended. : Deferred. Rectal: Deferred. Skin: Warm, dry. Intact. Extremities: 2+ radial pulses bilaterally. No lower extremity edema. Neuro: Awake, alert, oriented x3. No gross motor or sensory deficits. Cranial nerves II through XII intact. Gait not assessed. Labs/Diagnostic Data Labs Test 05/25/25 22:02 05/25/25 21:57 05/25/25 20:30 05/25/25 10:00 Range/Units POC Glucose 137 H 70-106 mg/dl Sodium Level 135 L 136-145 mmol/L Potassium Level 4.6 3.5-5.1 mmol/L Chloride Level 100 98-107 mmol/L Carbon Dioxide Level 28 20-31 mmol/L Anion Gap 7 5-15 Blood Urea Nitrogen 15 9-23 mg/dL Creatinine 0.70 0.550-1.02 mg/dL Glomerular Filtration Rate Calc 105 >90 mL/min BUN/Creatinine Ratio 21.4 H 10.0-20.0 Serum Glucose 146 H 74-106 mg/dL Calcium Level 8.3 L 8.7-10.4 mg/dL Urine Color Light-yellow Yellow Urine Clarity Turbid H Clear Urine pH 6.0 5.0-9.0 Urine Specific [place] 1.015 1.001-1.035 Urine Protein 1+ H Negative Urine Ketones Negative Negative Urine Blood 2+ H Negative /uL Urine Nitrite Negative Negative Urine Bilirubin Negative Negative Urine Urobilinogen Normal Negative mg/dL Urine Leukocyte Esterase 1+ Negative /uL Urine RBC 114 0 - 4 /hpf Urine Microscopic WBC 30 H 0-5 /HPF Urine Squamous Epithelial Cells Few <5 /hpf Urine Bacteria Few H None Seen /hpf Urine Glucose 4+ H Normal mg/dL Urine Opiates Screen Neg NEGATIVE Urine Fentanyl Screen Neg NEGATIVE Urine Barbiturates Screen Neg NEGATIVE Urine Phencyclidine Screen Neg NEGATIVE Urine Amphetamines Screen Neg NEGATIVE Urine Benzodiazepines Screen Neg NEGATIVE Urine Cocaine Screen Neg NEGATIVE Urine Cannabinoids Screen Neg NEGATIVE White Blood Count 4.1 L 4.4-10.8 10^3/uL Red Blood Count 3.60 L 4.0-5.20 10^6/uL Hemoglobin 9.5 L 12.2-16.2 g/dL Hematocrit 30.6 L 36.0-46.0 % Mean Corpuscular Volume 84.9 80.0-100.0 fL Mean Corpuscular Hemoglobin 26.5 L 28.0-32.0 pg Mean Corpuscular Hemoglobin Concent 31.2 L 32.0-36.0 g/dL Red Cell Distribution Width 17.0 H 11.8-14.3 % Platelet Count 345 140-450 10^3/uL Mean Platelet Volume 8.4 6.9-10.8 fL Neutrophils (%) (Auto) 68.8 37.0-80.0 % Lymphocytes (%) (Auto) 21.1 10.0-50.0 % Monocytes (%) (Auto) 9.4 0.0-12.0 % Eosinophils (%) (Auto) 0.3 0.0-7.0 % Basophils (%) (Auto) 0.4 0.0-2.0 % Neutrophils # (Auto) 2.8 1.6-8.6 10 ^3/uL Lymphocytes # (Auto) 0.9 0.4-5.4 10 ^3/uL Monocytes # (Auto) 0.4 0-1.3 10 ^3/uL Eosinophils # (Auto) 0 0-0.8 10 ^3/uL Basophils # (Auto) 0 0-0.2 10 ^3/uL Nucleated Red Blood Cells 0.1 % Triglycerides Level 100 < 150 mg/dL Cholesterol Level 198 < 200 mg/dL LDL Cholesterol 84 < 100 mg/dL HDL Cholesterol 91 H 40-59 mg/dL Thyroid Stimulating Hormone (TSH) 2.84 0.55-4.78 uIU/mL Test 05/25/25 05:07 05/24/25 22:06 05/24/25 15:34 05/24/25 08:20 Range/Units Magnesium Level 2.1 1.6-2.6 mg/dL Total Bilirubin 0.4 0.2-1.0 mg/dL Aspartate Amino Transferase (AST) 32 13-40 U/L Alanine Aminotransferase (ALT) 34 7-40 U/L Alkaline Phosphatase 130 H 46-116 U/L Total Protein 6.1 5.7-8.2 g/dL Albumin 3.4 3.2-4.8 g/dL Plasma/Serum Blood Alcohol < 3.0 <10 mg/dL Lactic Acid Level 1.0 0.4-2.0 mmol/L Phosphorus Level 3.2 2.4-5.1 mg/dL Beta-Hydroxybutyric Acid 4.061 H < 0.4 mmol/L Beta HCG, Quantitative < 0.0 L 1.5-4.2 mIU/mL Test 05/24/25 05:58 05/24/25 05:15 Range/Units Influenza Type A Antigen Negative Negative Influenza Type B Antigen Negative Negative SARS-CoV-2 Antigen (Rapid) Negative NEGATIVE Prothrombin Time 10.8 9.3-11.8 sec Prothrombin Time INR 1.02 0.9-1.15 Activated Partial Thromboplast Time 27.0 24.5-34.5 SEC D-Dimer, Quantitative 1.43 H 0.0-0.49 mg/L FEU Hemoglobin A1c > 14.0 H <5.7 % A1C Iron Level 25 L 50-170 ug/dL Total Iron Binding Capacity 325 250-425 ug/dL Percent Iron Saturation 7.7 L 15-50 % Ferritin 12.7 10-291 ng/mL B-Type Natriuretic Peptide 82.83 0-100 pg/mL Lipase 31 12-53 U/L Microbiology Date/Time Source Procedure Growth Status 05/24/25 16:50 Nose MRSA Screen - Final Complete 05/24/25 05:15 Blood Blood Culture - Preliminary NO GROWTH AFTER 24 HOURS OF INCUBATION. Resulted Assessment Impression: Diabetic ketoacidosis, resolved Sepsis Diabetes mellitus w/ hyperglycemia Hypertension Cachexia, BMI 16.4 Plan: On room air Supplemental oxygen PRN Titrate to keep O2 sats above 92%. Complete antibiotics Glycemic control Accu-Cheks, ISS. Blood pressure control, on medications Monitor renal function. Monitor electrolytes. Supplement as necessary. Monitor ins and outs. Patient tolerating diet. Pt is stable from the pulmonary standpoint for downgrade to the floor. DVT prophylaxis. Prognosis: Poor given patient's multiple co-morbidities. Rest of plan per hospitalist and other consultants. Thank you Dr. Freedman for allowing me to participate in this patient's care. Further recommendations will depend on the patient's clinical course. Please do not hesitate to contact me if you have any questions or concerns. This medical document was created using an electronic medical record system with [employer] system. Although these documentations are being carefully reviewed, there may still be some phonetic and typographical changes. The errors are purely typographical, due to imperfection on the software program, and do not reflect any compromise in the patient's medical care. Plan discussed with: Patient, Other (YASH Greco/Dr. Freedman) CHASIDY MARCUS MD May 25, 2025 23:56
[2025-05-26] VITALS (9 sets, daily range): BP systolic 107–168; BP diastolic 80–103; PULSE 75–111; RESP 16–18; TEMP 97.4–98.2; O2SAT 94–100
[2025-05-26 09:32] LABS: Anion Gap 6 (5-15); Carbon Dioxide 28 mmol/L (20-31); Chloride 102 mmol/L (98-107); Potassium 4.6 mmol/L (3.5-5.1); Sodium 136 mmol/L (136-145)
[2025-05-26 09:38] LABS: BUN/Creatinine Ratio 21.2 (10.0-20.0); Blood Urea Nitrogen 14 mg/dL (9-23)
[2025-05-26 09:39] LABS: Calcium 8.3 mg/dL (8.7-10.4); Glucose 206 mg/dL (74-106)
[2025-05-26 11:18] LABS: Hepatitis B Surface Antigen Negative (Negative); Hepatitis C Antibody Negative (Negative)
--- NOTE | 2025-05-26 12:08 | DVHPN2 ---
Subjective The patient is seen and examined at bedside. No complaint today. Blood pressure is 180/100. Blood glucose better controlled Reviewed: Care Plan, H&P, Labs, Medications, Previous Orders, Radiology Changes from previous H/P or p: No Changes Eyes: No Pain, No Vision change, No Conjunctivae inflammation, No Eyelid inflammation, No Other, No Redness ENT: No Ear pain, No Ear discharge, No Nose pain, No Nose discharge, No Nose congestion, No Mouth pain, No Mouth swelling, No Throat pain, No Throat swelling, No Other Cardiovascular: No Chest Pain, No Palpitations, No Orthopnea, No Paroxysmal Noc. Dyspnea, No Edema, No Lt Headedness, No Other Respiratory: No Cough, No Dry, No Shortness of breath, No SOB with excertion, No Wheezing, No Hemoptysis, No Pleuritic Pain, No Sputum, No Other Gastrointestinal: No Nausea, No Vomiting, No Abdominal Pain, No Diarrhea, No Constipation, No Melena, No Hematochezia, No Other Genitourinary: No Dysuria, No Frequency, No Incontinence, No Hematuria, No Retention, No Other Musculoskeletal: No other, No neck pain, No shoulder pain, No arm pain, No back pain, No hand pain, No leg pain, No foot pain Skin: No Rash, No Lesions, No Jaundice, No Bruising, No Other Objective Vitals Vital Signs Date Time Temp Pulse Resp B/P (MAP) Pulse Ox O2 Delivery O2 Flow Rate FiO2 05/26/25 09:00 97.4 102 16 168/103 (124) 100 97.4 05/26/25 08:15 Room Air* 0 21 Intake/Output Intake and Output 05/26/25 07:00 Intake Total 2430 ml Balance 2430 ml Intake Oral 1180 ml IV Total 1250 ml # Voids 3 General Appearance: Alert, Oriented X3, Cooperative, No acute distress HEENT: Atraumatic Lungs: Clear to auscultation Cardiovascular: Regular rate, Normal S1, Normal S2 Abdomen: Normal bowel sounds, Soft Rectal: Deferred Psych/Mental Status: Mental status NL Medications Current Medications Medications Dose Ordered Sig/Tone Route Start Time Stop Time Status Last Admin Dose Admin Cefepime HCl 50 ml @ 12.5 mls/hr Q12HR IV 05/24/25 22:00 05/26/25 09:38 12.5 MLS/HR Ondansetron HCl 4 mg Q4HP PRN IV 05/24/25 13:00 Morphine Sulfate 2 mg Q4HPRN PRN IV 05/24/25 13:00 Nitroglycerin 0.4 mg Q5MINP PRN SL 05/24/25 13:00 Morphine Sulfate 2 mg Q30M PRN IV 05/24/25 13:00 Pantoprazole Sodium 40 mg DAILY IV 05/24/25 13:00 05/26/25 09:38 40 MG Vancomycin HCl 0 ml @ 0 mls/hr UD IV 05/24/25 13:30 Vancomycin HCl 100 ml @ 100 mls/hr Q12H IV 05/25/25 02:00 05/26/25 02:21 100 MLS/HR Dextrose 50 ml UD PRN IV 05/25/25 02:30 Insulin Human Regular Q4HR SC 05/25/25 06:15 05/26/25 11:48 6 UNITS Diagnostic Test (Pha) 1 strip Q4HR 05/25/25 06:15 05/26/25 10:23 1 STRIP Sodium Chloride 1,000 ml @ 125 mls/hr Q8H IV 05/25/25 12:45 05/26/25 04:45 125 MLS/HR Ferrous Sulfate 325 mg BIDWM PO 05/25/25 18:00 05/26/25 09:38 325 MG Ergocalciferol 50,000 unit Q7D PO 05/25/25 12:45 05/25/25 13:59 50,000 UNIT Laboratory Results Laboratory Tests 05/25/25 10:00 05/26/25 08:38 Chemistry Test 05/25/25 21:57 05/26/25 08:38 Calcium Level 8.3 mg/dL (8.7-10.4) L 8.3 mg/dL (8.7-10.4) L Magnesium Level 1.9 mg/dL (1.6-2.6) Urinalysis Test 05/25/25 20:30 Urine Color Light-yellow (Yellow) Urine Clarity Turbid (Clear) H Urine pH 6.0 (5.0-9.0) Urine Specific [place] 1.015 (1.001-1.035) Urine Protein 1+ (Negative) H Urine Ketones Negative (Negative) Urine Blood 2+ /uL (Negative) H Urine Nitrite Negative (Negative) Urine Bilirubin Negative (Negative) Urine Urobilinogen Normal mg/dL (Negative) Urine Leukocyte Esterase 1+ /uL (Negative) Urine RBC 114 /hpf (0 - 4) Urine Microscopic WBC 30 /HPF (0-5) H Urine Squamous Epithelial Cells Few /hpf (<5) Urine Bacteria Few /hpf (None Seen) H Urine Glucose 4+ mg/dL (Normal) H Microbiology Microbiology Date/Time Source Procedure Growth Status 05/24/25 16:50 Nose MRSA Screen - Final Complete 05/24/25 05:15 Blood Blood Culture - Preliminary NO GROWTH AFTER 48 HOURS OF INCUBATION. 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 - Outpatient Cardio workup Continuing current management. We will give hydralazine IV PRN for high blood pressure. Continuing to monitor the diabetes. Continuing physical therapy. The patient may need front wheel walker at home. This medical document was created using an electronic medical record system with [employer] computerized dictation system. Although this document has been carefully reviewed, there may still be some phonetic and typographical errors. These areas are purely typographical due to imperfections of the software programs, and do not reflect any compromise in the patient's medical care. Plan discussed with: Patient Date of Service: May 26, 2025 Billing Provider: DONNA BROWNING MD Common Visit Codes: [id number] INP/OBS CARE(HIGH) DONNA BROWNING MD May 26, 2025 12:08
[2025-05-26] MEDS: CEFEPIME 1GM/ 50ML 50 ML IV SCH (16:09)
[2025-05-26 23:13] LABS: Anion Gap 10 (5-15); Carbon Dioxide 23 mmol/L (20-31); Chloride 104 mmol/L (98-107); Potassium 4.1 mmol/L (3.5-5.1); Sodium 137 mmol/L (136-145)
[2025-05-26 23:14] LABS: Calcium 8.5 mg/dL (8.7-10.4)
[2025-05-26 23:19] LABS: BUN/Creatinine Ratio 13.2 (10.0-20.0); Blood Urea Nitrogen 9 mg/dL (9-23)
[2025-05-26 23:21] LABS: Glucose 194 mg/dL (74-106)
[2025-05-27] VITALS (8 sets, daily range): BP systolic 103–178; BP diastolic 53–108; PULSE 85–105; RESP 15–17; TEMP 97.1–98; O2SAT 95–99
[2025-05-27] MEDS: VANCOMYCIN 750MG KIT 100 ML IV SCH (03:11)
[2025-05-27 11:34] LABS: Chloride 104 mmol/L (98-107); Potassium 4.5 mmol/L (3.5-5.1); Sodium 138 mmol/L (136-145)
[2025-05-27 11:35] LABS: Anion Gap 7 (5-15); Carbon Dioxide 27 mmol/L (20-31)
[2025-05-27 11:39] LABS: Calcium 8.4 mg/dL (8.7-10.4)
[2025-05-27 11:40] LABS: BUN/Creatinine Ratio 20.0 (10.0-20.0); Blood Urea Nitrogen 12 mg/dL (9-23)
[2025-05-27 11:41] LABS: Glucose 210 mg/dL (74-106)
--- NOTE | 2025-05-27 11:56 | DVHPN2 ---
Subjective The patient is seen and examined at bedside. No complaint today. Blood pressure remained high above 180 Reviewed: Care Plan, H&P, Labs, Medications, Previous Orders, Radiology Changes from previous H/P or p: No Changes Eyes: No Pain, No Vision change, No Conjunctivae inflammation, No Eyelid inflammation, No Other, No Redness ENT: No Ear pain, No Ear discharge, No Nose pain, No Nose discharge, No Nose congestion, No Mouth pain, No Mouth swelling, No Throat pain, No Throat swelling, No Other Cardiovascular: No Chest Pain, No Palpitations, No Orthopnea, No Paroxysmal Noc. Dyspnea, No Edema, No Lt Headedness, No Other Respiratory: No Cough, No Dry, No Shortness of breath, No SOB with excertion, No Wheezing, No Hemoptysis, No Pleuritic Pain, No Sputum, No Other Gastrointestinal: No Nausea, No Vomiting, No Abdominal Pain, No Diarrhea, No Constipation, No Melena, No Hematochezia, No Other Genitourinary: No Dysuria, No Frequency, No Incontinence, No Hematuria, No Retention, No Other Musculoskeletal: No other, No neck pain, No shoulder pain, No arm pain, No back pain, No hand pain, No leg pain, No foot pain Skin: No Rash, No Lesions, No Jaundice, No Bruising, No Other Objective Vitals Vital Signs Date Time Temp Pulse Resp B/P (MAP) Pulse Ox O2 Delivery O2 Flow Rate FiO2 05/27/25 09:00 97.8 103 15 159/93 (115) 99 97.8 05/27/25 08:00 Room Air* 0 21 Intake/Output Intake and Output 05/27/25 07:00 Intake Total 2860 ml Output Total 803 ml Balance 2057 ml Intake Oral 1860 ml IV Total 1000 ml Output Urine Total 800 ml Stool Total 3 ml # Voids 6 General Appearance: Alert, Oriented X3, Cooperative, No acute distress HEENT: Atraumatic Lungs: Clear to auscultation Cardiovascular: Regular rate, Normal S1, Normal S2 Abdomen: Normal bowel sounds, Soft Rectal: Deferred Psych/Mental Status: Mental status NL Medications Current Medications Medications Dose Ordered Sig/Tone Route Start Time Stop Time Status Last Admin Dose Admin Ondansetron HCl 4 mg Q4HP PRN IV 05/24/25 13:00 Morphine Sulfate 2 mg Q4HPRN PRN IV 05/24/25 13:00 Nitroglycerin 0.4 mg Q5MINP PRN SL 05/24/25 13:00 Morphine Sulfate 2 mg Q30M PRN IV 05/24/25 13:00 Pantoprazole Sodium 40 mg DAILY IV 05/24/25 13:00 05/27/25 08:50 40 MG Vancomycin HCl 0 ml @ 0 mls/hr UD IV 05/24/25 13:30 Dextrose 50 ml UD PRN IV 05/25/25 02:30 Insulin Human Regular Q4HR SC 05/25/25 06:15 05/27/25 11:20 6 UNITS Diagnostic Test (Pha) 1 strip Q4HR 05/25/25 06:15 05/27/25 10:00 1 STRIP Sodium Chloride 1,000 ml @ 125 mls/hr Q8H IV 05/25/25 12:45 05/26/25 23:07 125 MLS/HR Ferrous Sulfate 325 mg BIDWM PO 05/25/25 18:00 05/27/25 08:50 325 MG Ergocalciferol 50,000 unit Q7D PO 05/25/25 12:45 05/25/25 13:59 50,000 UNIT Cefepime HCl 50 ml @ 12.5 mls/hr Q8H IV 05/26/25 16:09 05/27/25 08:50 12.5 MLS/HR Vancomycin HCl 100 ml @ 100 mls/hr Q12H IV 05/27/25 03:00 05/27/25 03:11 100 MLS/HR Laboratory Results Laboratory Tests 05/25/25 10:00 05/27/25 11:00 Chemistry Test 05/26/25 22:32 05/27/25 07:01 05/27/25 11:00 Calcium Level 8.5 mg/dL (8.7-10.4) L 8.4 mg/dL (8.7-10.4) L Magnesium Level 2.0 mg/dL (1.6-2.6) Urinalysis Test 05/25/25 20:30 Urine Color Light-yellow (Yellow) Urine Clarity Turbid (Clear) H Urine pH 6.0 (5.0-9.0) Urine Specific [place] 1.015 (1.001-1.035) Urine Protein 1+ (Negative) H Urine Ketones Negative (Negative) Urine Blood 2+ /uL (Negative) H Urine Nitrite Negative (Negative) Urine Bilirubin Negative (Negative) Urine Urobilinogen Normal mg/dL (Negative) Urine Leukocyte Esterase 1+ /uL (Negative) Urine RBC 114 /hpf (0 - 4) Urine Microscopic WBC 30 /HPF (0-5) H Urine Squamous Epithelial Cells Few /hpf (<5) Urine Bacteria Few /hpf (None Seen) H Urine Glucose 4+ mg/dL (Normal) H Microbiology Microbiology Date/Time Source Procedure Growth Status 05/24/25 16:50 Nose MRSA Screen - Final Complete 05/24/25 05:15 Blood Blood Culture - Preliminary NO GROWTH AFTER 72 HOURS OF INCUBATION. 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 - Outpatient Cardio workup Continuing current management. I will add amlodipine to her regimen. Continuing to monitor blood pressure. Discharge planning. We will request for front wheel walker. This medical document was created using an electronic medical record system with [employer] computerized dictation system. Although this document has been carefully reviewed, there may still be some phonetic and typographical errors. These areas are purely typographical due to imperfections of the software programs, and do not reflect any compromise in the patient's medical care. Plan discussed with: Patient Date of Service: May 27, 2025 Billing Provider: DONNA BROWNING MD Common Visit Codes: [id number] INP/OBS CARE(HIGH) DONNA BROWNING MD May 27, 2025 11:56
[2025-05-27] MEDS: hydrALAZINE HCL 20 MG/ML VL IV PRN (17:00)
[2025-05-27] MEDS: dilTIAZem 25 MG/5 ML VIAL IV ONE (21:42)
[2025-05-27 22:28] LABS: Chloride 105 mmol/L (98-107); Potassium 4.3 mmol/L (3.5-5.1); Sodium 137 mmol/L (136-145)
[2025-05-27 22:29] LABS: Anion Gap 8 (5-15); Carbon Dioxide 24 mmol/L (20-31)
[2025-05-27 22:31] LABS: Calcium 8.4 mg/dL (8.7-10.4)
[2025-05-27 22:34] LABS: BUN/Creatinine Ratio 13.1 (10.0-20.0); Blood Urea Nitrogen 11 mg/dL (9-23); Glucose 156 mg/dL (74-106)
[2025-05-28 01:00] VITALS: BP 165/99; PULSE 97; RESP 17; TEMP 97.7; O2SAT 99
[2025-05-28 01:50] VITALS: BP 148/93; PULSE 119; TEMP 97.7
[2025-05-28] MEDS: ONDANSETRON HCL 4 MG/2 ML VIAL IV PRN (02:02)
[2025-05-28] MEDS: MORPHINE SULFATE INJ 2 MG/ml SYRG IV PRN (02:10)
[2025-05-28] MEDS: VANCOMYCIN 750MG KIT 100 ML IV SCH (03:55)
[2025-05-28 05:00] VITALS: BP 129/85; PULSE 71; RESP 16; TEMP 97.4; O2SAT 95
[2025-05-28 08:58] VITALS: BP 159/99; PULSE 114; RESP 17; TEMP 98; O2SAT 98
[2025-05-28 10:48] LABS: Chloride 105 mmol/L (98-107); Potassium 4.8 mmol/L (3.5-5.1); Sodium 137 mmol/L (136-145)
[2025-05-28 10:49] LABS: Anion Gap 9 (5-15); Carbon Dioxide 23 mmol/L (20-31)
[2025-05-28 10:50] LABS: Calcium 8.1 mg/dL (8.7-10.4)
[2025-05-28 10:54] LABS: BUN/Creatinine Ratio 19.3 (10.0-20.0); Blood Urea Nitrogen 17 mg/dL (9-23)
[2025-05-28 10:55] LABS: Glucose 298 mg/dL (74-106)
--- NOTE | 2025-05-28 12:04 | DVHDS2 ---
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 Labs/Diagnostic Data: Laboratory Results Test 05/28/25 10:20 05/28/25 02:34 05/28/25 01:49 05/25/25 20:30 Sodium Level 137 mmol/L (136-145) Potassium Level 4.8 mmol/L (3.5-5.1) Chloride Level 105 mmol/L (98-107) Carbon Dioxide Level 23 mmol/L (20-31) Anion Gap 9 (5-15) Blood Urea Nitrogen 17 mg/dL (9-23) Creatinine 0.88 mg/dL (0.550-1.02) Glomerular Filtration Rate Calc 80 mL/min (>90) BUN/Creatinine Ratio 19.3 (10.0-20.0) Serum Glucose 298 mg/dL (74-106) Calcium Level 8.1 mg/dL (8.7-10.4) Magnesium Level 1.9 mg/dL (1.6-2.6) Vancomycin Level Trough 18.6 ug/mL (5-10) POC Glucose 147 mg/dl (70-106) Urine Color Light-yellow (Yellow) Urine Clarity Turbid (Clear) Urine pH 6.0 (5.0-9.0) Urine Specific [place] 1.015 (1.001-1.035) Urine Protein 1+ (Negative) Urine Ketones Negative (Negative) Urine Blood 2+ /uL (Negative) Urine Nitrite Negative (Negative) Urine Bilirubin Negative (Negative) Urine Urobilinogen Normal mg/dL (Negative) Urine Leukocyte Esterase 1+ /uL (Negative) Urine RBC 114 /hpf (0 - 4) Urine Microscopic WBC 30 /HPF (0-5) Urine Squamous Epithelial Cells Few /hpf (<5) Urine Bacteria Few /hpf (None Seen) Urine Glucose 4+ mg/dL (Normal) Urine Opiates Screen Neg (NEGATIVE) Urine Fentanyl Screen Neg (NEGATIVE) Urine Barbiturates Screen Neg (NEGATIVE) Urine Phencyclidine Screen Neg (NEGATIVE) Urine Amphetamines Screen Neg (NEGATIVE) Urine Benzodiazepines Screen Neg (NEGATIVE) Urine Cocaine Screen Neg (NEGATIVE) Urine Cannabinoids Screen Neg (NEGATIVE) Test 8/24/25 10:00 05/25/25 05:07 05/24/25 22:06 05/24/25 15:34 White Blood Count 4.1 10^3/uL (4.4-10.8) Red Blood Count 3.60 10^6/uL (4.0-5.20) Hemoglobin 9.5 g/dL (12.2-16.2) Hematocrit 30.6 % (36.0-46.0) Mean Corpuscular Volume 84.9 fL (80.0-100.0) Mean Corpuscular Hemoglobin 26.5 pg (28.0-32.0) Mean Corpuscular Hemoglobin Concent 31.2 g/dL (32.0-36.0) Red Cell Distribution Width 17.0 % (11.8-14.3) Platelet Count 345 10^3/uL (140-450) Mean Platelet Volume 8.4 fL (6.9-10.8) Neutrophils (%) (Auto) 68.8 % (37.0-80.0) Lymphocytes (%) (Auto) 21.1 % (10.0-50.0) Monocytes (%) (Auto) 9.4 % (0.0-12.0) Eosinophils (%) (Auto) 0.3 % (0.0-7.0) Basophils (%) (Auto) 0.4 % (0.0-2.0) Neutrophils # (Auto) 2.8 10 ^3/uL (1.6-8.6) Lymphocytes # (Auto) 0.9 10 ^3/uL (0.4-5.4) Monocytes # (Auto) 0.4 10 ^3/uL (0-1.3) Eosinophils # (Auto) 0 10 ^3/uL (0-0.8) Basophils # (Auto) 0 10 ^3/uL (0-0.2) Nucleated Red Blood Cells 0.1 % Triglycerides Level 100 mg/dL (< 150) Cholesterol Level 198 mg/dL (< 200) LDL Cholesterol 84 mg/dL (< 100) HDL Cholesterol 91 mg/dL (40-59) Thyroid Stimulating Hormone (TSH) 2.84 uIU/mL (0.55-4.78) Total Bilirubin 0.4 mg/dL (0.2-1.0) Aspartate Amino Transferase (AST) 32 U/L (13-40) Alanine Aminotransferase (ALT) 34 U/L (7-40) Alkaline Phosphatase 130 U/L (46-116) Total Protein 6.1 g/dL (5.7-8.2) Albumin 3.4 g/dL (3.2-4.8) Vitamin D 25-Hydroxy 8.5 ng/mL (30.0-100) Hepatitis B Surface Antigen Negative (Negative) Hepatitis C Antibody Negative (Negative) Plasma/Serum Blood Alcohol < 3.0 mg/dL (<10) Test 05/24/25 08:20 05/24/25 05:58 05/24/25 05:15 Lactic Acid Level 1.0 mmol/L (0.4-2.0) Phosphorus Level 3.2 mg/dL (2.4-5.1) Beta-Hydroxybutyric Acid 4.061 mmol/L (< 0.4) Beta HCG, Quantitative < 0.0 mIU/mL (1.5-4.2) Influenza Type A Antigen Negative (Negative) Influenza Type B Antigen Negative (Negative) SARS-CoV-2 Antigen (Rapid) Negative (NEGATIVE) Prothrombin Time 10.8 sec (9.3-11.8) Prothrombin Time INR 1.02 (0.9-1.15) Activated Partial Thromboplast Time 27.0 SEC (24.5-34.5) D-Dimer, Quantitative 1.43 mg/L FEU (0.0-0.49) Hemoglobin A1c > 14.0 % A1C (<5.7) Iron Level 25 ug/dL (50-170) Total Iron Binding Capacity 325 ug/dL (250-425) Percent Iron Saturation 7.7 % (15-50) Ferritin 12.7 ng/mL (10-291) B-Type Natriuretic Peptide 82.83 pg/mL (0-100) Lipase 31 U/L (12-53) Other Laboratory Tests 05/28/25 10:20 05/25/25 10:00 Brief Hx & Hospital Course: This is a 50 years old female with past medical history of diabetes come to emergency department because she unable to rise from the toilet. The patient was brought into emergency department for further evaluation. Patient has bilateral lower extremity edema. The patient had diabetes but did not take any of her medication. She was found to have DKA and was started on insulin drip. Her hemoglobin A1c was 14. The patient was started on insulin and advised to compliant with her treatment regimen. The patient had an echo done showed severe LVH with ejection fraction of 60% with possible HCM. Outpatient cardiology workup. The patient remained weak and blood pressure elevated. I add amlodipine in her regimen and the patient doing much better. Blood pressure control. Lower extremity edema improved after given Lasix. The patient will be discharged home today. Advised the patient to follow up with primary care physician 1-2 weeks. Activity as tolerated. Diet per home diet. Recommend carb controlled diet. Physical exam: HEENT: Normocephalic atraumatic pupils equal react to light and accommodation. Extraocular muscles intact, conjunctiva pink, oropharynx moist, no thrush, no exudate. Lymphatic: No lymphadenopathy Cardiovascular exam: S1, S2 was heard. No murmurs, rubs, gallops Lung: Clear on auscultation bilaterally, no wheeze, rale, rhonchi. GI: Abdominal soft, nondistended, nontenderness, positive bowel sounds. Extremity: No crepitus, cyanosis, edema. Pedal pulses present bilateral. Full range of motion. Skin: Normal turgor, no rash. Psych: Alert, oriented x3. Neurology: No focal deficits, cranial nerve II to XII grossly intact. This medical document was created using an electronic medical record system with [employer] direct computerized dictation system. Although this document has been carefully reviewed, there may still be some phonetic and typographical errors. These areas are purely typographical due to imperfections of the software programs, and do not reflect any compromise in the patient's medical care. 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 Outpatient cardiology workup Discharge Disposition: Home Discharge Instruct/Medications Scheduled Amlodipine Besylate (Amlodipine Besylate), 1 TAB PO DAILY Ibuprofen (Ibuprofen), 1 TAB PO TID Metformin Hydrochloride (Metformin Hcl Er), 1 TAB PO DAILY Discharge Statement: "Patient was advised to return to the ER or call 911 if any headaches, dizziness, shortness of breath, chest pain, abdominal pain, bleeding, fevers, or worsening of medical condition. Patient was counseled about treatment plan, medications, possible side effects, patientverbalized understanding. All questions were answered to the best of my ability. This discharge took greater then 30 minutes in planning, reviewing documentation, counseling the patient, and discussing with other team members." ASSESSMENT ASSESSMENT Assessment Date of Service: May 28, 2025 Billing Provider: DONNA BROWNING MD Common Visit Codes: 71528-SAQ/OBS DISCH DAY >30min DONNA BROWNING MD May 28, 2025 12:04
[2025-05-28] MEDS ORDERED: METF-490 PO (12:05)
[2025-05-28] MEDS ORDERED: AMLO1TAB23 PO (12:07)
[2025-05-28 13:00] VITALS: BP 157/90; PULSE 96; RESP 17; TEMP 96.9; O2SAT 98
== END 2025-05-28 16:31 | disposition home or self-care (01) | DRG 720 ==
LOC: ER 03:57 → OVERFLOW 12:53 → ICU CENTRL 16:34 → WEST WING 05-25 16:02
PROVIDERS: ADMIT Internal Medicine; ATTEND Internal Medicine
DX: A41.9 Sepsis, unspecified organism (principal); I50.31 Acute diastolic (congestive) heart failure; R64 Cachexia; E11.10 Type 2 diabetes mellitus with ketoacidosis without coma; E87.1 Hypo-osmolality and hyponatremia; I42.2 Other hypertrophic cardiomyopathy; Z20.822 Contact with and (suspected) exposure to COVID-19; I16.1 Hypertensive emergency; E83.42 Hypomagnesemia; D50.9 Iron deficiency anemia, unspecified; I11.0 Hypertensive heart disease with heart failure; Z68.1 Body mass index [BMI] 19.9 or less, adult; Z79.1 Long term (current) use of non-steroidal anti-inflammatories (NSAID); Z79.899 Other long term (current) drug therapy
CPT/HCPCS: 36415; 71045; 80048; 80053; 80061; 80202; 80307; 80320; 81001; 82010; 82306; 82728; 82962; 83036; 83540; 83550; 83605; 83690; 83735; 83880; 84100; 84443; 84702; 85025; 85379; 85610; 85730; 86803; 87040; 87081; 87340; 87426; 87804; 93306; 93971; 96374; 97110; 97116; 97163; 99291; G0378; J1815; J2405; J2470; J3480; J7042